=== PATIENT | male | born 1975 | race African-American/Black ===

== ENCOUNTER 2018-02-15 23:09 | Emergency (ER) | payer OTHER ==
[2018-02-16] MEDS ORDERED: KETOROLAC 60 MG/2 ML INJ. (00:43)
[2018-02-16] MEDS: KETOROLAC 60 MG/2 ML INJ. IM (00:48)
== END 2018-02-16 01:11 | disposition home or self-care (01) ==
LOC: ER 02-16 01:11
DX: S83.92XA Sprain of unspecified site of left knee, initial encounter (principal); X58.XXXA Exposure to other specified factors, initial encounter; Y93.89 Activity, other specified; Y99.8 Other external cause status; Y92.89 Other specified places as the place of occurrence of the external cause
CPT/HCPCS: 29505; 73564; 96372; 99284-25; J1885

== ENCOUNTER → 2019-01-26 | Outpatient (CLI) | payer OTHER ==
[2018-02-15 23:42] VITALS: BP 146/88
[~2019-01-26] MED LIST: HYDR-3164 PO
--- NOTE | 2019-01-26 12:48 | KCIC ---
MRI of the lumbar spine without contrast 01/26/2019 CLINICAL HISTORY: Low back pain which radiates down the right leg. TECHNIQUE: Unenhanced T1-weighted and T2-weighted sagittal and axial and inversion recovery sagittal images of the lumbar spine were obtained. FINDINGS: Very mild S-shaped curvature of the thoracolumbar spine is seen. The morphology and signal characteristics of all the disks of the lumbar spine are within normal limits. The marrow signal of the visualized bony structures is within normal limits. The conus medullaris is normal morphology, position, and signal characteristics. The L1-2 and L2-3 disc spaces are within normal limits. At the L3-4, L4-5 and L5-S1 disc spaces there are mild generalized disc bulges. Degenerative changes are seen involving the facet joints bilaterally. There is mild ligamentum flavum hypertrophy. There is prominence of the anterior and posterior epidural fat. These findings do not result in areas of significant central spinal canal or neural foraminal stenosis. IMPRESSION: The changes of degenerative disc disease are seen involving the mid and lower lumbar spine. These findings do not result in significant central spinal canal or neural foraminal stenosis. Electronically signed by: Flavio Carbone MD (01/26/2019 12:45 PM) [id number]
== END | disposition home or self-care (01) ==
LOC: KCIC MRI 11:13
PROVIDERS: ATTEND Internal Medicine
DX: M51.16 Intervertebral disc disorders with radiculopathy, lumbar region (principal); M43.8X5 Other specified deforming dorsopathies, thoracolumbar region; M53.3 Sacrococcygeal disorders, not elsewhere classified; K62.89 Other specified diseases of anus and rectum; R15.9 Full incontinence of feces; R29.2 Abnormal reflex; R53.1 Weakness
CPT/HCPCS: 72148